=== PATIENT | male | born 1980 | race Caucasian/White ===

== ENCOUNTER 2022-01-03 11:34 | Inpatient (IN) | payer MEDICAID, OTHER ==
[~2022-01-03] VITALS: Ht 172.7 cm; Wt 71.7 kg
[2022-01-03 12:47] LABS: BASOPHILS % 0.3 % (0.0-2.0); EOSINOPHILS % 0.3 % (0.0-5.0); HEMATOCRIT. 27.4 % (42.0-52.0); HEMOGLOBIN. 8.9 g/dL (14.0-18.0); LYMPHOCYTES % 10.9 % (20.0-50.0); MEAN CORPUSCULAR HEMOGLOBIN 24.6 pg (28.0-32.0); MEAN CORPUSCULAR VOLUME 75.8 fL (80.0-94.0); MONOCYTES % 1.8 % (2.0-8.0); NEUTROPHILS % 86.7 % (40.0-76.0); PLATELET 108 x1000/uL (130-400); RED BLOOD CELL COUNT 3.62 mill/uL (4.7-6.1); RED CELL DISTRIBUTION WIDTH 17.4 % (11.6-14.6)
[2022-01-03 12:53] LABS: CHLORIDE 113 mEq/L (98-107)
[2022-01-03] MEDS ORDERED: SODIUM CHLORIDE 0.9% 500 ML IV ONE (16:00)
[2022-01-03] MEDS ORDERED: HYDRALAZINE 20MG/ML VIAL IV ONE (21:15)
[2022-01-04] VITALS (34 sets, daily range): BP systolic 37–223; BP diastolic 18–193
[2022-01-04] MEDS ORDERED: DEXTROSE 50% WATER 50ML SYRINGE IV PRN (05:45)
[2022-01-04] MEDS ORDERED: SODIUM CHLORIDE 0.9% 1,000 ML IV SCH (06:00)
[2022-01-04] MEDS: BLOOD SUGAR DIAGNOSTIC STRIP TEST SCH ×3 (06:11→21:49)
[2022-01-04] MEDS: INSULIN LISPRO 100 UNITS/ML SUBCUT SCH ×3 (06:11→21:00)
[2022-01-04] MEDS ORDERED: HYDRALAZINE 20MG/ML VIAL IV SCH (08:15)
[2022-01-04] MEDS ORDERED: PIPERACILLIN/TAZOBACTAM 3.375 G in DEXTROSE 5% WATER 50 ML IV SCH (09:00)
[2022-01-04 09:04] LABS: BASOPHILS % 0.3 % (0.0-2.0); EOSINOPHILS % 0.3 % (0.0-5.0); LYMPHOCYTES % 16.3 % (20.0-50.0); MEAN CORPUSCULAR VOLUME 74.7 fL (80.0-94.0); MEAN PLATELET VOLUME 8.8 fl (7.4-10.4); MONOCYTES % 3.2 % (2.0-8.0); NEUTROPHILS % 79.9 % (40.0-76.0); PLATELET 87 x1000/uL (130-400); RED BLOOD CELL COUNT 3.21 mill/uL (4.7-6.1); RED CELL DISTRIBUTION WIDTH 17.4 % (11.6-14.6)
[2022-01-04] MEDS: AMLODIPINE 10MG TABLET PO SCH (13:16)
[2022-01-04] MEDS ORDERED: LORAZEPAM 2MG/ML CPJ IV PRN ×2 (15:00→21:00)
[2022-01-04] MEDS ORDERED: SODIUM CHLORIDE 0.9% 500 ML IV ONE ×2 (16:45→17:00)
[2022-01-04] MEDS ORDERED: FLUMAZENIL 0.1 MG/ML 5ML VIAL IV NR ×3 (16:45→23:00)
[2022-01-04] MEDS ORDERED: NOREPINEPHRINE 8 MG in DEXT 5% WATER 242 ML IV PRN (17:15)
[2022-01-04] MEDS ORDERED: IPRATROPIUM/ALBUTEROL 0.5-3(2.5)MG/3ML NEB HHN PRN (17:15)
[2022-01-04] MEDS ORDERED: FLUMAZENIL 0.1 MG/ML 5ML VIAL IV PRN (17:45)
[2022-01-04 18:01] LABS: BG CARBOXYHEMOGLOBIN 0.2 % (0.5-1.5); BG DEOXYHEMOGLOBIN 6.9 % (0.0-5.0); BG FRACTION INSPIRED OXYGEN 21; BG HCO3 ACT 15.9 mmol/L (22.0-26.0); BG METHEMOGLOBIN 0.2 % (0.0-1.5); BG OXYGEN SATURATION 93.1 % (92.0-98.5); BG OXYHEMOGLOBIN 92.7 % (94.0-97.0); BG PCO2 35.1 mmHg (35.0-45.0); BG PH 7.275 (7.350-7.450); BG PO2 76.2 mmHg (75.0-100.0); BG SAMPLE SITE RIGHT RADIAL; BG TOTAL HEMOGLOBIN 8.1 g/dL (12.0-18.0); BG VENT MODE ROOM AIR
[2022-01-04] MEDS ORDERED: SODIUM BICARBONATE 100 MEQ in SODIUM CHLORIDE 0.45% 1,000 ML IV SCH (20:00)
[2022-01-04 20:43] LABS: TOTAL IRON BINDING CAPACITY 198 ug/dL (250-450)
[2022-01-04 21:12] LABS: VITAMIN B12 SERUM >2000 pg/mL pg/mL (211-911)
[2022-01-04 22:44] LABS: BG BASE EXCESS -11.9 mmol/L (-2.0-2.0); BG CARBOXYHEMOGLOBIN 0.4 % (0.5-1.5); BG DEOXYHEMOGLOBIN 6.1 % (0.0-5.0); BG FRACTION INSPIRED OXYGEN 40; BG HCO3 ACT 15.6 mmol/L (22.0-26.0); BG METHEMOGLOBIN 0.1 % (0.0-1.5); BG OXYGEN SATURATION 93.9 % (92.0-98.5); BG OXYHEMOGLOBIN 93.4 % (94.0-97.0); BG PCO2 40.8 mmHg (35.0-45.0); BG PH 7.199 (7.350-7.450); BG PO2 82.9 mmHg (75.0-100.0); BG SAMPLE SITE RIGHT RADIAL; BG TOTAL HEMOGLOBIN 12.1 g/dL (12.0-18.0); BG VENT MODE NASAL CANNULA
[2022-01-04] MEDS ORDERED: SODIUM BICARBONATE 8.4% 1 MEQ/ML 50ML SYR IV NR (23:00)
[2022-01-05] VITALS (89 sets, daily range): BP systolic 68–173; BP diastolic 26–108
[2022-01-05] MEDS ORDERED: HALOPERIDOL LACTATE 5MG/ML VIAL IM PRN
[2022-01-05] MEDS ORDERED: DOPAMINE 800MG PREMIX (DOUBLE) 250 ML IV PRN (00:45)
[2022-01-05] MEDS ORDERED: PHENYLEPHRINE 100 MG in DEXT 5% WATER 240 ML IV PRN (00:45)
[2022-01-05] MEDS: NOREPINEPHRINE 32 MG in DEXT 5% WATER 218 ML IV PRN (01:02)
[2022-01-05 01:16] LABS: BG BASE EXCESS -25.1 mmol/L (-2.0-2.0); BG CARBOXYHEMOGLOBIN 0.3 % (0.5-1.5); BG DEOXYHEMOGLOBIN 8.5 % (0.0-5.0); BG FRACTION INSPIRED OXYGEN 100; BG HCO3 ACT 7.1 mmol/L (22.0-26.0); BG METHEMOGLOBIN 0.3 % (0.0-1.5); BG OXYGEN SATURATION 91.4 % (92.0-98.5); BG OXYHEMOGLOBIN 90.9 % (94.0-97.0); BG PCO2 37.9 mmHg (35.0-45.0); BG PH 6.888 (7.350-7.450); BG PO2 96.5 mmHg (75.0-100.0); BG SAMPLE SITE RIGHT RADIAL; BG TOTAL HEMOGLOBIN 10.5 g/dL (12.0-18.0); BG VENT MODE VENT - AC
[2022-01-05 01:25] LABS: HEMATOCRIT. 31.1 % (42.0-52.0); HEMOGLOBIN. 9.6 g/dL (14.0-18.0); MEAN CORPUSCULAR HEMOGLOBIN 24.6 pg (28.0-32.0); MEAN CORPUSCULAR VOLUME 79.4 fL (80.0-94.0); MEAN PLATELET VOLUME 9.1 fl (7.4-10.4); PLATELET 89 x1000/uL (130-400); RED BLOOD CELL COUNT 3.91 mill/uL (4.7-6.1); RED CELL DISTRIBUTION WIDTH 18.2 % (11.6-14.6)
[2022-01-05] MEDS ORDERED: POTASSIUM CHLORIDE INJ 40 MEQ in DEXT 5% WATER 500 ML IV ONE (02:15)
[2022-01-05] MEDS ORDERED: SODIUM BICARBONATE 8.4% 1 MEQ/ML 50ML SYR IV NR (02:30)
[2022-01-05] MEDS ORDERED: SODIUM BICARBONATE 150 MEQ in DEXTROSE 5% WATER 1,000 ML IV SCH (03:00)
[2022-01-05] MEDS: KCL 20MEQ/100ML X 2 FOR TOTAL KCL 40MEQ/200ML IV SCH ×2 (03:05→05:38)
[2022-01-05] MEDS: FENTANYL CITRATE/PF 2,500 MCG in SODIUM CHLORIDE 0.9% 200 ML IV PRN (03:09)
[2022-01-05] MEDS: MIDAZOLAM HCL 100 MG in SODIUM CHLORIDE 0.9% 80 ML IV PRN (03:27)
[2022-01-05 04:25] LABS: NUCLEATED RED BLOOD CELLS 5 /100 WBC; PLATELET ESTIMATE DECREASED
[2022-01-05 05:29] LABS: HEMATOCRIT. 27.1 % (42.0-52.0); MEAN CORPUSCULAR HEMOGLOBIN 24.9 pg (28.0-32.0); MEAN CORPUSCULAR VOLUME 74.8 fL (80.0-94.0); MEAN PLATELET VOLUME 8.5 fl (7.4-10.4); PLATELET 73 x1000/uL (130-400); RED BLOOD CELL COUNT 3.62 mill/uL (4.7-6.1); RED CELL DISTRIBUTION WIDTH 17.5 % (11.6-14.6)
[2022-01-05] MEDS: INSULIN LISPRO 100 UNITS/ML SUBCUT SCH ×4 (05:38→21:00)
[2022-01-05] MEDS: BLOOD SUGAR DIAGNOSTIC STRIP TEST SCH ×4 (05:38→21:15)
[2022-01-05] MEDS: AMLODIPINE 10MG TABLET PO SCH (09:00)
[2022-01-05] MEDS ORDERED: EPINEPHRINE 0.1MG/ML (1:10,000) 10ML SYR ONE (09:11)
[2022-01-05] MEDS ORDERED: ATROPINE SULFATE 1MG/10ML SYR ONE (09:11)
[2022-01-05] MEDS ORDERED: DEXTROSE 50% WATER 50ML SYRINGE IV ONE (09:11)
[2022-01-05] MEDS ORDERED: SODIUM BICARBONATE 8.4% 1 MEQ/ML 50ML SYR IV ONE (09:11)
[2022-01-05] MEDS ORDERED: AMIODARONE HCL 50MG/ML 3ML VIAL IV ONE (09:11)
[2022-01-05 09:34] LABS: BG BASE EXCESS -5.6 mmol/L (-2.0-2.0); BG DEOXYHEMOGLOBIN 0.9 % (0.0-5.0); BG FRACTION INSPIRED OXYGEN 100; BG METHEMOGLOBIN 0.3 % (0.0-1.5); BG OXYGEN SATURATION 99.1 % (92.0-98.5); BG OXYHEMOGLOBIN 98.8 % (94.0-97.0); BG PCO2 27.8 mmHg (35.0-45.0); BG PH 7.428 (7.350-7.450); BG PO2 232.8 mmHg (75.0-100.0); BG SAMPLE SITE RIGHT RADIAL; BG TOTAL HEMOGLOBIN 8.4 g/dL (12.0-18.0); BG VENT MODE VENT - AC
[2022-01-05 10:05] LABS: INR 1.6; PROTHROMBIN TIME 16.1 sec (9.6-11.0)
[2022-01-05 11:53] LABS: CLARITY URINE CLOUDY (CLEAR); COLOR URINE RED (YELLOW); KETONES URINE NEGATIVE (NEGATIVE); LEUKOCYTE ESTERASE URINE 1+ (NEGATIVE); NITRITE URINE NEGATIVE (NEGATIVE); OCCULT BLOOD URINE 3+ (NEGATIVE); PROTEIN URINE 3+ (NEGATIVE); UROBILINOGEN URINE 0.2 E.U./dL (0.2-1.0)
[2022-01-05 12:10] LABS: *AMPHETAMINES SCREEN URINE PRESUMTIVE POSITIVE (NEGATIVE); *BARBITURATES SCREEN URINE NEGATIVE (NEGATIVE)
[2022-01-05 12:11] LABS: *BENZODIAZEPINES SCREEN URINE PRESUMTIVE POSITIVE (NEGATIVE); *COCAINE SCREEN URINE NEGATIVE (NEGATIVE); CANNABINOID URINE SCREEN NEGATIVE (NEGATIVE); METHADONE URINE SCREEN NEGATIVE (NEGATIVE); OPIATES URINE SCREEN NEGATIVE (NEGATIVE); PHENCYCLIDINE URINE SCREEN NEGATIVE (NEGATIVE)
[2022-01-05] MEDS: MIDODRINE HCL 2.5MG TABLET PO SCH ×2 (13:14→21:20)
[2022-01-05] MEDS: SODIUM BICARBONATE 50 MEQ in DEXTROSE 5% WATER 1,000 ML IV SCH (13:30)
[2022-01-05 16:20] LABS: NUCLEATED RED BLOOD CELLS 3 /100 WBC; PLATELET ESTIMATE DECREASED
[2022-01-05] MEDS: CEFEPIME 1,000 MG in DEXTROSE 5% WATER 50 ML IV SCH (18:35)
[2022-01-05] MEDS: IPRATROPIUM/ALBUTEROL 0.5-3(2.5)MG/3ML NEB HHN SCH (20:08)
[2022-01-06] VITALS (61 sets, daily range): BP systolic 67–149; BP diastolic 44–92
[2022-01-06] MEDS: IPRATROPIUM/ALBUTEROL 0.5-3(2.5)MG/3ML NEB HHN SCH ×2 (00:22→21:16)
[2022-01-06] MEDS ORDERED: PROPOFOL 10MG/ML 100ML 100 ML IV PRN ×2 (01:15→10:15)
[2022-01-06] MEDS: MIDAZOLAM HCL 100 MG in SODIUM CHLORIDE 0.9% 80 ML IV PRN ×2 (01:18→09:46)
[2022-01-06 05:32] LABS: BASOPHILS % 0.3 % (0.0-2.0); EOSINOPHILS % 0.2 % (0.0-5.0); HEMATOCRIT. 25.4 % (42.0-52.0); HEMOGLOBIN. 8.6 g/dL (14.0-18.0); LYMPHOCYTES % 18.9 % (20.0-50.0); MEAN CORPUSCULAR HEMOGLOBIN 25.2 pg (28.0-32.0); MEAN CORPUSCULAR VOLUME 74.4 fL (80.0-94.0); MEAN PLATELET VOLUME 8.5 fl (7.4-10.4); MONOCYTES % 2.7 % (2.0-8.0); NEUTROPHILS % 77.9 % (40.0-76.0); PLATELET 56 x1000/uL (130-400); RED BLOOD CELL COUNT 3.41 mill/uL (4.7-6.1); RED CELL DISTRIBUTION WIDTH 17.5 % (11.6-14.6)
[2022-01-06] MEDS: INSULIN LISPRO 100 UNITS/ML SUBCUT SCH ×4 (05:57→21:23)
[2022-01-06] MEDS: BLOOD SUGAR DIAGNOSTIC STRIP TEST SCH ×4 (05:57→21:19)
[2022-01-06] MEDS: FENTANYL CITRATE/PF 2,500 MCG in SODIUM CHLORIDE 0.9% 200 ML IV PRN (06:05)
[2022-01-06] MEDS: SODIUM BICARBONATE 50 MEQ in DEXTROSE 5% WATER 1,000 ML IV SCH (06:05)
[2022-01-06] MEDS: CEFEPIME 1,000 MG in DEXTROSE 5% WATER 50 ML IV SCH ×2 (06:06→18:21)
[2022-01-06] MEDS: MIDODRINE HCL 2.5MG TABLET PO SCH ×3 (06:10→21:27)
[2022-01-06 06:15] LABS: CHLORIDE 119 mEq/L (98-107)
[2022-01-06 06:23] LABS: PHOSPHORUS 5.2 mg/dL (2.5-4.9)
[2022-01-06 06:41] LABS: CREATINE KINASE 1132 IU/L (39-308)
[2022-01-06 09:40] LABS: BG BASE EXCESS -0.3 mmol/L (-2.0-2.0); BG CARBOXYHEMOGLOBIN 0.2 % (0.5-1.5); BG DEOXYHEMOGLOBIN 3.8 % (0.0-5.0); BG FRACTION INSPIRED OXYGEN 40; BG HCO3 ACT 23.2 mmol/L (22.0-26.0); BG METHEMOGLOBIN 0.3 % (0.0-1.5); BG OXYGEN SATURATION 96.2 % (92.0-98.5); BG OXYHEMOGLOBIN 95.7 % (94.0-97.0); BG PCO2 33.1 mmHg (35.0-45.0); BG PH 7.463 (7.350-7.450); BG PO2 89.2 mmHg (75.0-100.0); BG SAMPLE SITE RIGHT RADIAL; BG TOTAL HEMOGLOBIN 9.1 g/dL (12.0-18.0); BG TOTAL RESPIRATORY RATE 24 b/min; BG VENT MODE VENT - AC
[2022-01-06 10:30] LABS: D-DIMER 4.99 mg/L FEU (<0.50); INR 1.5; PROTHROMBIN TIME 15.2 sec (9.6-11.0)
[2022-01-06] MEDS: DEXTROSE 5% WATER 1,000 ML IV SCH ×2 (10:34→21:25)
[2022-01-06] MEDS ORDERED: MAGNESIUM 4 G PREMIX 100 ML IV NR (12:00)
[2022-01-06 18:26] LABS: PROSTRATE SPECIFIC AG TOTAL 0.64 ng/mL (0.0-4.0)
[2022-01-06 18:37] LABS: HEPATITIS B SURFACE ANTIGEN NEGATIVE
[2022-01-07] VITALS (61 sets, daily range): BP systolic 79–146; BP diastolic 44–85
[2022-01-07] MEDS: IPRATROPIUM/ALBUTEROL 0.5-3(2.5)MG/3ML NEB HHN SCH ×3 (01:28→14:57)
[2022-01-07] MEDS: MIDAZOLAM HCL 100 MG in SODIUM CHLORIDE 0.9% 80 ML IV PRN (02:16)
[2022-01-07 05:27] LABS: BASOPHILS % 0.6 % (0.0-2.0); EOSINOPHILS % 0.9 % (0.0-5.0); HEMATOCRIT. 26.3 % (42.0-52.0); HEMOGLOBIN. 8.7 g/dL (14.0-18.0); LYMPHOCYTES % 13.7 % (20.0-50.0); MEAN CORPUSCULAR VOLUME 75.2 fL (80.0-94.0); MEAN PLATELET VOLUME 8.4 fl (7.4-10.4); NEUTROPHILS % 81.8 % (40.0-76.0); RED BLOOD CELL COUNT 3.49 mill/uL (4.7-6.1); RED CELL DISTRIBUTION WIDTH 17.5 % (11.6-14.6)
[2022-01-07] MEDS: BLOOD SUGAR DIAGNOSTIC STRIP TEST SCH ×4 (05:40→21:53)
[2022-01-07 05:44] LABS: PHOSPHORUS 6.1 mg/dL (2.5-4.9)
[2022-01-07] MEDS: INSULIN LISPRO 100 UNITS/ML SUBCUT SCH ×4 (05:50→21:56)
[2022-01-07] MEDS: CEFEPIME 1,000 MG in DEXTROSE 5% WATER 50 ML IV SCH ×2 (05:51→18:25)
[2022-01-07] MEDS: MIDODRINE HCL 2.5MG TABLET PO SCH (05:51)
[2022-01-07] MEDS: DEXTROSE 5% WATER 1,000 ML IV SCH ×2 (05:51→16:00)
[2022-01-07] MEDS: NOREPINEPHRINE 32 MG in DEXT 5% WATER 218 ML IV PRN (05:53)
[2022-01-07 06:12] LABS: PLATELET 46 x1000/uL (130-400)
[2022-01-07 08:07] LABS: HIV SCREEN 4G Non Reactive (Non Reactive)
[2022-01-07 09:40] LABS: BG BASE EXCESS -0.2 mmol/L (-2.0-2.0); BG CARBOXYHEMOGLOBIN 0.4 % (0.5-1.5); BG DEOXYHEMOGLOBIN 6.7 % (0.0-5.0); BG FRACTION INSPIRED OXYGEN 55; BG HCO3 ACT 25.6 mmol/L (22.0-26.0); BG METHEMOGLOBIN 0.1 % (0.0-1.5); BG OXYGEN SATURATION 93.3 % (92.0-98.5); BG OXYHEMOGLOBIN 92.8 % (94.0-97.0); BG PCO2 47.5 mmHg (35.0-45.0); BG PO2 73.9 mmHg (75.0-100.0); BG SAMPLE SITE RIGHT RADIAL; BG TOTAL HEMOGLOBIN 9.1 g/dL (12.0-18.0); BG TOTAL RESPIRATORY RATE 16 b/min; BG VENT MODE VENT - AC
[2022-01-07] MEDS ORDERED: LINEZOLID 600 MG PREMIX 300 ML IV SCH (11:15)
[2022-01-07] MEDS ORDERED: VANCOMYCIN 1.25GM PMX (XELLIA) 250 ML IV SCH (13:00)
[2022-01-07] MEDS: METRONIDAZOLE 500 MG PREMIX 100 ML IV SCH ×2 (13:10→22:06)
[2022-01-07] MEDS: MIDODRINE HCL 5MG TABLET PO SCH ×2 (14:00→21:53)
[2022-01-07] MEDS ORDERED: FENTANYL CITRATE/PF 2,500 MCG in DEXT 5% WATER 200 ML IV PRN (19:45)
[2022-01-08] VITALS (106 sets, daily range): BP systolic 72–203; BP diastolic 37–112
[2022-01-08] MEDS: DEXTROSE 5% WATER 1,000 ML IV SCH ×4 (02:02→21:32)
[2022-01-08 04:45] LABS: BG BASE EXCESS -2.1 mmol/L (-2.0-2.0); BG CARBOXYHEMOGLOBIN 0.4 % (0.5-1.5); BG DEOXYHEMOGLOBIN 10.3 % (0.0-5.0); BG FRACTION INSPIRED OXYGEN 40; BG HCO3 ACT 24.2 mmol/L (22.0-26.0); BG METHEMOGLOBIN 0.3 % (0.0-1.5); BG OXYGEN SATURATION 89.6 % (92.0-98.5); BG PCO2 49.5 mmHg (35.0-45.0); BG PH 7.307 (7.350-7.450); BG PO2 63.8 mmHg (75.0-100.0); BG SAMPLE SITE RIGHT RADIAL; BG VENT MODE VENT - SIMV
[2022-01-08] MEDS: IPRATROPIUM/ALBUTEROL 0.5-3(2.5)MG/3ML NEB HHN SCH ×4 (05:27→20:38)
[2022-01-08 05:35] LABS: HEMATOCRIT. 22.8 % (42.0-52.0); HEMOGLOBIN. 7.5 g/dL (14.0-18.0); MEAN CORPUSCULAR HEMOGLOBIN 25.1 pg (28.0-32.0); MEAN CORPUSCULAR VOLUME 76.6 fL (80.0-94.0); MEAN PLATELET VOLUME 8.2 fl (7.4-10.4); RED BLOOD CELL COUNT 2.97 mill/uL (4.7-6.1); RED CELL DISTRIBUTION WIDTH 17.8 % (11.6-14.6)
[2022-01-08 05:55] LABS: PHOSPHORUS 7.2 mg/dL (2.5-4.9)
[2022-01-08 06:23] LABS: PLATELET 35 x1000/uL (130-400)
[2022-01-08] MEDS: INSULIN LISPRO 100 UNITS/ML SUBCUT SCH ×4 (06:58→21:31)
[2022-01-08] MEDS: BLOOD SUGAR DIAGNOSTIC STRIP TEST SCH ×4 (06:59→21:32)
[2022-01-08] MEDS: MIDODRINE HCL 5MG TABLET PO SCH ×3 (06:59→21:29)
[2022-01-08] MEDS: CEFEPIME 1,000 MG in DEXTROSE 5% WATER 50 ML IV SCH ×2 (06:59→18:00)
[2022-01-08] MEDS: METRONIDAZOLE 500 MG PREMIX 100 ML IV SCH ×2 (09:02→21:29)
[2022-01-08 10:01] LABS: NUCLEATED RED BLOOD CELLS 2 /100 WBC; PLATELET ESTIMATE MARKEDLY DECREASED
[2022-01-08] MEDS ORDERED: INSULIN GLARGINE UD 100 UNITS/ML SYR SUBCUT SCH (11:00)
[2022-01-08] MEDS: INSULIN GLARGINE UD 100 UNITS/ML SYR SUBCUT SCH (21:31)
[2022-01-09] VITALS (81 sets, daily range): BP systolic 111–173; BP diastolic 34–111
[2022-01-09] MEDS: IPRATROPIUM/ALBUTEROL 0.5-3(2.5)MG/3ML NEB HHN SCH ×5 (00:17→23:59)
[2022-01-09] MEDS: DEXTROSE 5% WATER 1,000 ML IV SCH ×3 (04:31→23:46)
[2022-01-09 04:50] LABS: MEAN CORPUSCULAR HEMOGLOBIN 25.2 pg (28.0-32.0); MEAN CORPUSCULAR VOLUME 75.4 fL (80.0-94.0); MEAN PLATELET VOLUME 8.5 fl (7.4-10.4); RED BLOOD CELL COUNT 2.72 mill/uL (4.7-6.1); RED CELL DISTRIBUTION WIDTH 17.3 % (11.6-14.6)
[2022-01-09 05:18] LABS: HEMATOCRIT. 20.5 % (42.0-52.0); HEMOGLOBIN. 6.8 g/dL (14.0-18.0)
[2022-01-09] MEDS: INSULIN LISPRO 100 UNITS/ML SUBCUT SCH ×4 (06:35→21:09)
[2022-01-09] MEDS: CEFEPIME 1,000 MG in DEXTROSE 5% WATER 50 ML IV SCH ×2 (06:35→17:52)
[2022-01-09] MEDS: MIDODRINE HCL 5MG TABLET PO SCH ×3 (06:36→21:08)
[2022-01-09] MEDS: BLOOD SUGAR DIAGNOSTIC STRIP TEST SCH ×4 (06:36→21:10)
[2022-01-09] MEDS: METRONIDAZOLE 500 MG PREMIX 100 ML IV SCH ×2 (09:45→21:08)
[2022-01-09] MEDS: INSULIN GLARGINE UD 100 UNITS/ML SYR SUBCUT SCH ×2 (09:46→21:10)
[2022-01-09] MEDS ORDERED: VANCOMYCIN 1GM PMX (XELLIA) 200 ML IV NR (10:00)
[2022-01-09 10:39] LABS: BG BASE EXCESS 3.5 mmol/L (-2.0-2.0); BG CARBOXYHEMOGLOBIN 0.3 % (0.5-1.5); BG DEOXYHEMOGLOBIN 9.3 % (0.0-5.0); BG FRACTION INSPIRED OXYGEN 35; BG HCO3 ACT 27.1 mmol/L (22.0-26.0); BG METHEMOGLOBIN 0.1 % (0.0-1.5); BG OXYGEN SATURATION 90.7 % (92.0-98.5); BG OXYHEMOGLOBIN 90.3 % (94.0-97.0); BG PCO2 36.2 mmHg (35.0-45.0); BG PH 7.492 (7.350-7.450); BG PO2 59.2 mmHg (75.0-100.0); BG SAMPLE SITE RIGHT RADIAL; BG TOTAL HEMOGLOBIN 6.7 g/dL (12.0-18.0); BG VENT MODE VENT - AC
[2022-01-09 14:08] LABS: NUCLEATED RED BLOOD CELLS 1 /100 WBC
[2022-01-09 14:09] LABS: PLATELET ESTIMATE SLIGHTLY DECREASED
[2022-01-09 14:10] LABS: PLATELET 25 x1000/uL (130-400)
[2022-01-10] VITALS (53 sets, daily range): BP systolic 94–148; BP diastolic 51–94
[2022-01-10 05:55] LABS: EOSINOPHILS % 1.7 % (0.0-5.0); HEMATOCRIT. 29.3 % (42.0-52.0); HEMOGLOBIN. 9.6 g/dL (14.0-18.0); LYMPHOCYTES % 12.1 % (20.0-50.0); MEAN CORPUSCULAR HEMOGLOBIN 25.6 pg (28.0-32.0); MEAN CORPUSCULAR VOLUME 78.4 fL (80.0-94.0); MEAN PLATELET VOLUME 10.6 fl (7.4-10.4); MONOCYTES % 6.1 % (2.0-8.0); NEUTROPHILS % 79.1 % (40.0-76.0); RED BLOOD CELL COUNT 3.74 mill/uL (4.7-6.1); RED CELL DISTRIBUTION WIDTH 18.4 % (11.6-14.6)
[2022-01-10 06:07] LABS: CHLORIDE 113 mEq/L (98-107)
[2022-01-10 06:19] LABS: PHOSPHORUS 2.8 mg/dL (2.5-4.9)
[2022-01-10] MEDS: MIDODRINE HCL 5MG TABLET PO SCH ×3 (06:28→22:10)
[2022-01-10] MEDS: CEFEPIME 1,000 MG in DEXTROSE 5% WATER 50 ML IV SCH (06:29)
[2022-01-10] MEDS: INSULIN LISPRO 100 UNITS/ML SUBCUT SCH ×4 (06:30→22:02)
[2022-01-10 06:34] LABS: PLATELET 46 x1000/uL (130-400)
[2022-01-10] MEDS: BLOOD SUGAR DIAGNOSTIC STRIP TEST SCH ×4 (06:39→21:14)
[2022-01-10] MEDS: IPRATROPIUM/ALBUTEROL 0.5-3(2.5)MG/3ML NEB HHN SCH ×3 (08:58→20:35)
[2022-01-10] MEDS: METRONIDAZOLE 500 MG PREMIX 100 ML IV SCH ×2 (09:00→21:13)
[2022-01-10] MEDS: DEXTROSE 5% WATER 1,000 ML IV SCH ×2 (09:35→19:35)
[2022-01-10 11:02] LABS: BG BASE EXCESS -0.9 mmol/L (-2.0-2.0); BG CARBOXYHEMOGLOBIN 0.3 % (0.5-1.5); BG DEOXYHEMOGLOBIN 4.3 % (0.0-5.0); BG FRACTION INSPIRED OXYGEN 35; BG HCO3 ACT 22.9 mmol/L (22.0-26.0); BG METHEMOGLOBIN 0.1 % (0.0-1.5); BG OXYGEN SATURATION 95.7 % (92.0-98.5); BG OXYHEMOGLOBIN 95.3 % (94.0-97.0); BG PCO2 34.3 mmHg (35.0-45.0); BG PH 7.442 (7.350-7.450); BG PO2 79.3 mmHg (75.0-100.0); BG SAMPLE SITE RIGHT RADIAL; BG VENT MODE VENT - AC
[2022-01-10 16:20] LABS: BG BASE EXCESS -0.5 mmol/L (-2.0-2.0); BG CARBOXYHEMOGLOBIN 0.3 % (0.5-1.5); BG DEOXYHEMOGLOBIN 6.4 % (0.0-5.0); BG FRACTION INSPIRED OXYGEN 35; BG METHEMOGLOBIN 0.5 % (0.0-1.5); BG OXYGEN SATURATION 93.5 % (92.0-98.5); BG OXYHEMOGLOBIN 92.8 % (94.0-97.0); BG PCO2 33.2 mmHg (35.0-45.0); BG PH 7.458 (7.350-7.450); BG SAMPLE SITE RIGHT RADIAL; BG TOTAL HEMOGLOBIN 9.1 g/dL (12.0-18.0); BG VENT MODE VENT - CPAP
[2022-01-10] MEDS: INSULIN GLARGINE UD 100 UNITS/ML SYR SUBCUT SCH (22:08)
[2022-01-11] VITALS (56 sets, daily range): BP systolic 105–166; BP diastolic 65–110
[2022-01-11] MEDS: IPRATROPIUM/ALBUTEROL 0.5-3(2.5)MG/3ML NEB HHN SCH ×4 (01:00→20:09)
[2022-01-11] MEDS: MIDODRINE HCL 5MG TABLET PO SCH ×3 (06:00→22:00)
[2022-01-11 06:18] LABS: BASOPHILS % 0.6 % (0.0-2.0); EOSINOPHILS % 2.6 % (0.0-5.0); HEMATOCRIT. 27.6 % (42.0-52.0); LYMPHOCYTES % 14.9 % (20.0-50.0); MEAN CORPUSCULAR HEMOGLOBIN 25.6 pg (28.0-32.0); MEAN CORPUSCULAR VOLUME 78.8 fL (80.0-94.0); MEAN PLATELET VOLUME 9.9 fl (7.4-10.4); MONOCYTES % 6.4 % (2.0-8.0); NEUTROPHILS % 75.5 % (40.0-76.0); PLATELET 82 x1000/uL (130-400); RED BLOOD CELL COUNT 3.51 mill/uL (4.7-6.1); RED CELL DISTRIBUTION WIDTH 18.6 % (11.6-14.6)
[2022-01-11] MEDS: INSULIN LISPRO 100 UNITS/ML SUBCUT SCH ×5 (06:18→21:00)
[2022-01-11] MEDS: BLOOD SUGAR DIAGNOSTIC STRIP TEST SCH ×5 (06:18→21:37)
[2022-01-11] MEDS: DEXTROSE 5% WATER 1,000 ML IV SCH (06:30)
[2022-01-11 06:55] LABS: PHOSPHORUS 2.5 mg/dL (2.5-4.9)
[2022-01-11] MEDS: METRONIDAZOLE 500 MG PREMIX 100 ML IV SCH ×2 (08:32→21:36)
[2022-01-11 08:43] LABS: BG BASE EXCESS 2.8 mmol/L (-2.0-2.0); BG CARBOXYHEMOGLOBIN 0.1 % (0.5-1.5); BG DEOXYHEMOGLOBIN 4.2 % (0.0-5.0); BG HCO3 ACT 26.6 mmol/L (22.0-26.0); BG METHEMOGLOBIN 0.3 % (0.0-1.5); BG OXYGEN SATURATION 95.8 % (92.0-98.5); BG OXYHEMOGLOBIN 95.4 % (94.0-97.0); BG PCO2 37.7 mmHg (35.0-45.0); BG PH 7.466 (7.350-7.450); BG PO2 79.8 mmHg (75.0-100.0); BG SAMPLE SITE RIGHT RADIAL; BG TOTAL HEMOGLOBIN 9.5 g/dL (12.0-18.0); BG VENT MODE COOL AEROSOL
[2022-01-11] MEDS: INSULIN GLARGINE UD 100 UNITS/ML SYR SUBCUT SCH ×2 (09:23→21:47)
[2022-01-11] MEDS ORDERED: VANCOMYCIN 1GM PMX (XELLIA) 200 ML IV NR (12:00)
[2022-01-11] MEDS ORDERED: MAGNESIUM 2 G PREMIX 50 ML IV NR (20:00)
[2022-01-12] VITALS (12 sets, daily range): BP systolic 95–140; BP diastolic 53–84
[2022-01-12] MEDS: IPRATROPIUM/ALBUTEROL 0.5-3(2.5)MG/3ML NEB HHN SCH ×4 (02:32→20:22)
[2022-01-12 05:19] LABS: EOSINOPHILS % 3.5 % (0.0-5.0); HEMATOCRIT. 28.7 % (42.0-52.0); HEMOGLOBIN. 9.5 g/dL (14.0-18.0); LYMPHOCYTES % 21.6 % (20.0-50.0); MEAN CORPUSCULAR HEMOGLOBIN 25.7 pg (28.0-32.0); MEAN CORPUSCULAR VOLUME 77.8 fL (80.0-94.0); MEAN PLATELET VOLUME 9.1 fl (7.4-10.4); MONOCYTES % 7.1 % (2.0-8.0); NEUTROPHILS % 66.8 % (40.0-76.0); PLATELET 174 x1000/uL (130-400); RED BLOOD CELL COUNT 3.68 mill/uL (4.7-6.1); RED CELL DISTRIBUTION WIDTH 18.4 % (11.6-14.6)
[2022-01-12 05:56] LABS: PHOSPHORUS 3.4 mg/dL (2.5-4.9)
[2022-01-12] MEDS: BLOOD SUGAR DIAGNOSTIC STRIP TEST SCH ×4 (07:30→21:11)
[2022-01-12] MEDS: METRONIDAZOLE 500 MG PREMIX 100 ML IV SCH ×3 (08:49→22:14)
[2022-01-12] MEDS: INSULIN LISPRO 100 UNITS/ML SUBCUT SCH ×4 (08:50→21:00)
[2022-01-12] MEDS: INSULIN GLARGINE UD 100 UNITS/ML SYR SUBCUT SCH ×2 (10:44→22:40)
[2022-01-12] MEDS: ENOXAPARIN 40MG/0.4ML SYR SUBCUT SCH (12:02)
[2022-01-12] MEDS: MIDODRINE HCL 5MG TABLET PO SCH ×2 (13:01→22:15)
[2022-01-13] VITALS (9 sets, daily range): BP systolic 99–122; BP diastolic 62–86
[2022-01-13] MEDS: IPRATROPIUM/ALBUTEROL 0.5-3(2.5)MG/3ML NEB HHN SCH ×2 (01:51→10:53)
[2022-01-13] MEDS: MIDODRINE HCL 5MG TABLET PO SCH ×3 (06:25→22:45)
[2022-01-13] MEDS: BLOOD SUGAR DIAGNOSTIC STRIP TEST SCH ×4 (07:30→21:24)
[2022-01-13 07:44] LABS: EOSINOPHILS % 3.6 % (0.0-5.0); HEMATOCRIT. 27.2 % (42.0-52.0); HEMOGLOBIN. 9.1 g/dL (14.0-18.0); LYMPHOCYTES % 16.5 % (20.0-50.0); MEAN CORPUSCULAR HEMOGLOBIN 26.1 pg (28.0-32.0); MEAN CORPUSCULAR VOLUME 77.9 fL (80.0-94.0); MEAN PLATELET VOLUME 8.8 fl (7.4-10.4); MONOCYTES % 5.5 % (2.0-8.0); NEUTROPHILS % 73.4 % (40.0-76.0); PLATELET 322 x1000/uL (130-400); RED BLOOD CELL COUNT 3.49 mill/uL (4.7-6.1); RED CELL DISTRIBUTION WIDTH 18.6 % (11.6-14.6)
[2022-01-13 07:48] LABS: CHLORIDE 108 mEq/L (98-107)
[2022-01-13] MEDS: INSULIN LISPRO 100 UNITS/ML SUBCUT SCH ×4 (08:00→21:00)
[2022-01-13] MEDS: ENOXAPARIN 40MG/0.4ML SYR SUBCUT SCH (10:55)
[2022-01-13] MEDS: INSULIN GLARGINE UD 100 UNITS/ML SYR SUBCUT SCH ×2 (10:56→22:50)
[2022-01-13] MEDS: SILVER SULFADIAZINE 1% CREAM 50GM TOP SCH ×2 (13:29→18:15)
[2022-01-14] VITALS: BP 130/75
[2022-01-14 04:00] VITALS: BP 119/75
[2022-01-14 06:04] LABS: BASOPHILS % 0.8 % (0.0-2.0); HEMATOCRIT. 31.8 % (42.0-52.0); HEMOGLOBIN. 10.2 g/dL (14.0-18.0); LYMPHOCYTES % 19.5 % (20.0-50.0); MEAN CORPUSCULAR HEMOGLOBIN 25.3 pg (28.0-32.0); MEAN CORPUSCULAR VOLUME 78.4 fL (80.0-94.0); MEAN PLATELET VOLUME 8.6 fl (7.4-10.4); MONOCYTES % 6.6 % (2.0-8.0); NEUTROPHILS % 70.1 % (40.0-76.0); PLATELET 459 x1000/uL (130-400); RED BLOOD CELL COUNT 4.05 mill/uL (4.7-6.1); RED CELL DISTRIBUTION WIDTH 18.1 % (11.6-14.6)
[2022-01-14] MEDS: MIDODRINE HCL 5MG TABLET PO SCH ×3 (06:06→23:45)
[2022-01-14 06:46] LABS: PHOSPHORUS 3.6 mg/dL (2.5-4.9)
[2022-01-14] MEDS: BLOOD SUGAR DIAGNOSTIC STRIP TEST SCH ×4 (07:51→21:41)
[2022-01-14 08:00] VITALS: BP 110/72
[2022-01-14] MEDS: INSULIN LISPRO 100 UNITS/ML SUBCUT SCH ×4 (08:00→21:00)
[2022-01-14] MEDS: ENOXAPARIN 40MG/0.4ML SYR SUBCUT SCH (10:13)
[2022-01-14] MEDS: INSULIN GLARGINE UD 100 UNITS/ML SYR SUBCUT SCH ×2 (10:13→23:46)
[2022-01-14] MEDS: SILVER SULFADIAZINE 1% CREAM 50GM TOP SCH ×2 (10:14→17:16)
[2022-01-14 12:00] VITALS: BP 112/77
[2022-01-14 16:00] VITALS: BP 114/81
[2022-01-14] MEDS: IPRATROPIUM/ALBUTEROL 0.5-3(2.5)MG/3ML NEB HHN SCH (16:05)
[2022-01-14 20:00] VITALS: BP 96/58
[2022-01-15] VITALS: BP 108/78
[2022-01-15] MEDS: IPRATROPIUM/ALBUTEROL 0.5-3(2.5)MG/3ML NEB HHN SCH ×4 (00:07→20:47)
[2022-01-15 04:00] VITALS: BP 112/71
[2022-01-15] MEDS: MIDODRINE HCL 5MG TABLET PO SCH ×3 (06:39→21:28)
[2022-01-15 07:10] LABS: BASOPHILS % 0.9 % (0.0-2.0); EOSINOPHILS % 3.1 % (0.0-5.0); HEMOGLOBIN. 9.9 g/dL (14.0-18.0); LYMPHOCYTES % 23.7 % (20.0-50.0); MEAN CORPUSCULAR HEMOGLOBIN 25.8 pg (28.0-32.0); MEAN CORPUSCULAR VOLUME 78.4 fL (80.0-94.0); MEAN PLATELET VOLUME 8.5 fl (7.4-10.4); MONOCYTES % 5.5 % (2.0-8.0); NEUTROPHILS % 66.8 % (40.0-76.0); PLATELET 570 x1000/uL (130-400); RED BLOOD CELL COUNT 3.82 mill/uL (4.7-6.1); RED CELL DISTRIBUTION WIDTH 18.2 % (11.6-14.6)
[2022-01-15 07:29] LABS: PHOSPHORUS 2.8 mg/dL (2.5-4.9)
[2022-01-15] MEDS: BLOOD SUGAR DIAGNOSTIC STRIP TEST SCH ×4 (07:59→21:26)
[2022-01-15] MEDS: INSULIN LISPRO 100 UNITS/ML SUBCUT SCH ×4 (07:59→21:29)
[2022-01-15 08:00] VITALS: BP 127/80
[2022-01-15] MEDS: SILVER SULFADIAZINE 1% CREAM 50GM TOP SCH ×2 (11:12→16:35)
[2022-01-15] MEDS: INSULIN GLARGINE UD 100 UNITS/ML SYR SUBCUT SCH ×2 (11:12→21:29)
[2022-01-15] MEDS: ENOXAPARIN 40MG/0.4ML SYR SUBCUT SCH (11:14)
[2022-01-15 12:00] VITALS: BP 115/74
[2022-01-15 16:00] VITALS: BP 112/76
[2022-01-15 20:00] VITALS: BP 104/63
[2022-01-16] VITALS: BP 108/64
[2022-01-16 04:00] VITALS: BP 120/79
[2022-01-16] MEDS: MIDODRINE HCL 5MG TABLET PO SCH ×3 (05:45→21:28)
[2022-01-16 06:59] LABS: EOSINOPHILS % 3.1 % (0.0-5.0); HEMOGLOBIN. 9.5 g/dL (14.0-18.0); LYMPHOCYTES % 21.7 % (20.0-50.0); MEAN CORPUSCULAR HEMOGLOBIN 25.6 pg (28.0-32.0); MEAN CORPUSCULAR VOLUME 78.4 fL (80.0-94.0); MONOCYTES % 7.3 % (2.0-8.0); NEUTROPHILS % 66.9 % (40.0-76.0); PLATELET 637 x1000/uL (130-400); RED CELL DISTRIBUTION WIDTH 18.2 % (11.6-14.6)
[2022-01-16 07:14] LABS: PHOSPHORUS 3.9 mg/dL (2.5-4.9)
[2022-01-16] MEDS: BLOOD SUGAR DIAGNOSTIC STRIP TEST SCH ×4 (07:40→20:58)
[2022-01-16 08:00] VITALS: BP 109/68
[2022-01-16] MEDS: INSULIN LISPRO 100 UNITS/ML SUBCUT SCH ×4 (08:00→20:58)
[2022-01-16] MEDS: SILVER SULFADIAZINE 1% CREAM 50GM TOP SCH ×2 (09:00→17:00)
[2022-01-16] MEDS: IPRATROPIUM/ALBUTEROL 0.5-3(2.5)MG/3ML NEB HHN SCH ×4 (09:16→20:33)
[2022-01-16] MEDS: INSULIN GLARGINE UD 100 UNITS/ML SYR SUBCUT SCH ×2 (10:00→21:35)
[2022-01-16 12:00] VITALS: BP 115/79
[2022-01-16] MEDS: ENOXAPARIN 40MG/0.4ML SYR SUBCUT SCH (12:11)
[2022-01-16 16:00] VITALS: BP 100/57
[2022-01-16 20:00] VITALS: BP 102/61
[2022-01-17] VITALS: BP 118/73
[2022-01-17 04:00] VITALS: BP 122/80
[2022-01-17] MEDS: MIDODRINE HCL 5MG TABLET PO SCH ×3 (06:23→21:50)
[2022-01-17 07:16] LABS: PHOSPHORUS 3.3 mg/dL (2.5-4.9)
[2022-01-17 07:21] LABS: BASOPHILS % 1.4 % (0.0-2.0); EOSINOPHILS % 3.7 % (0.0-5.0); HEMOGLOBIN. 8.8 g/dL (14.0-18.0); LYMPHOCYTES % 23.9 % (20.0-50.0); MEAN CORPUSCULAR HEMOGLOBIN 26.3 pg (28.0-32.0); MEAN PLATELET VOLUME 7.8 fl (7.4-10.4); MONOCYTES % 8.6 % (2.0-8.0); NEUTROPHILS % 62.4 % (40.0-76.0); PLATELET 705 x1000/uL (130-400); RED BLOOD CELL COUNT 3.33 mill/uL (4.7-6.1); RED CELL DISTRIBUTION WIDTH 18.1 % (11.6-14.6)
[2022-01-17] MEDS: BLOOD SUGAR DIAGNOSTIC STRIP TEST SCH ×4 (07:54→21:50)
[2022-01-17] MEDS: INSULIN LISPRO 100 UNITS/ML SUBCUT SCH ×4 (07:54→21:50)
[2022-01-17 08:00] VITALS: BP 103/74
[2022-01-17] MEDS: SILVER SULFADIAZINE 1% CREAM 50GM TOP SCH ×2 (08:47→16:24)
[2022-01-17] MEDS: IPRATROPIUM/ALBUTEROL 0.5-3(2.5)MG/3ML NEB HHN SCH ×2 (09:00→15:06)
[2022-01-17] MEDS: ENOXAPARIN 40MG/0.4ML SYR SUBCUT SCH (10:27)
[2022-01-17] MEDS: INSULIN GLARGINE UD 100 UNITS/ML SYR SUBCUT SCH ×2 (10:27→21:49)
[2022-01-17 12:00] VITALS: BP 128/85
[2022-01-17 16:00] VITALS: BP 93/56
[2022-01-17 20:00] VITALS: BP 118/75
[2022-01-18] VITALS (8 sets, daily range): BP systolic 103–135; BP diastolic 70–91
[2022-01-18] MEDS: IPRATROPIUM/ALBUTEROL 0.5-3(2.5)MG/3ML NEB HHN SCH ×3 (00:28→16:05)
[2022-01-18] MEDS: MIDODRINE HCL 5MG TABLET PO SCH ×3 (05:20→21:03)
[2022-01-18 06:38] LABS: BASOPHILS % 2.4 % (0.0-2.0); EOSINOPHILS % 4.1 % (0.0-5.0); HEMATOCRIT. 27.4 % (42.0-52.0); HEMOGLOBIN. 9.2 g/dL (14.0-18.0); LYMPHOCYTES % 31.8 % (20.0-50.0); MEAN CORPUSCULAR HEMOGLOBIN 25.8 pg (28.0-32.0); MEAN CORPUSCULAR VOLUME 77.3 fL (80.0-94.0); MEAN PLATELET VOLUME 7.8 fl (7.4-10.4); MONOCYTES % 9.2 % (2.0-8.0); NEUTROPHILS % 52.5 % (40.0-76.0); PLATELET 720 x1000/uL (130-400); RED BLOOD CELL COUNT 3.54 mill/uL (4.7-6.1); RED CELL DISTRIBUTION WIDTH 17.6 % (11.6-14.6)
[2022-01-18 06:47] LABS: CHLORIDE 106 mEq/L (98-107)
[2022-01-18 06:54] LABS: PHOSPHORUS 2.9 mg/dL (2.5-4.9)
[2022-01-18] MEDS: BLOOD SUGAR DIAGNOSTIC STRIP TEST SCH ×4 (07:30→21:05)
[2022-01-18] MEDS: INSULIN LISPRO 100 UNITS/ML SUBCUT SCH ×4 (09:29→21:04)
[2022-01-18] MEDS: SILVER SULFADIAZINE 1% CREAM 50GM TOP SCH ×2 (09:31→17:25)
[2022-01-18] MEDS: ENOXAPARIN 40MG/0.4ML SYR SUBCUT SCH (10:07)
[2022-01-18] MEDS: INSULIN GLARGINE UD 100 UNITS/ML SYR SUBCUT SCH ×2 (10:10→21:04)
[2022-01-18] MEDS ORDERED: MAGNESIUM 2 G PREMIX 50 ML IV SCH (11:00)
[2022-01-19] VITALS (7 sets, daily range): BP systolic 95–138; BP diastolic 51–83
[2022-01-19] MEDS: IPRATROPIUM/ALBUTEROL 0.5-3(2.5)MG/3ML NEB HHN SCH ×3 (00:22→15:08)
[2022-01-19] MEDS: MIDODRINE HCL 5MG TABLET PO SCH ×3 (05:04→20:49)
[2022-01-19 07:01] LABS: BASOPHILS % 2.6 % (0.0-2.0); EOSINOPHILS % 5.4 % (0.0-5.0); HEMATOCRIT. 26.7 % (42.0-52.0); HEMOGLOBIN. 8.9 g/dL (14.0-18.0); LYMPHOCYTES % 34.4 % (20.0-50.0); MEAN CORPUSCULAR HEMOGLOBIN 25.8 pg (28.0-32.0); MEAN CORPUSCULAR VOLUME 77.5 fL (80.0-94.0); MEAN PLATELET VOLUME 7.6 fl (7.4-10.4); MONOCYTES % 10.7 % (2.0-8.0); NEUTROPHILS % 46.9 % (40.0-76.0); PLATELET 702 x1000/uL (130-400); RED BLOOD CELL COUNT 3.45 mill/uL (4.7-6.1); RED CELL DISTRIBUTION WIDTH 17.5 % (11.6-14.6)
[2022-01-19 07:24] LABS: CHLORIDE 104 mEq/L (98-107)
[2022-01-19 07:30] LABS: PHOSPHORUS 2.8 mg/dL (2.5-4.9)
[2022-01-19] MEDS: BLOOD SUGAR DIAGNOSTIC STRIP TEST SCH ×4 (07:30→20:47)
[2022-01-19] MEDS: INSULIN LISPRO 100 UNITS/ML SUBCUT SCH ×4 (08:00→20:47)
[2022-01-19] MEDS: SILVER SULFADIAZINE 1% CREAM 50GM TOP SCH ×2 (09:01→18:32)
[2022-01-19] MEDS: ENOXAPARIN 40MG/0.4ML SYR SUBCUT SCH (11:49)
[2022-01-19] MEDS: INSULIN GLARGINE UD 100 UNITS/ML SYR SUBCUT SCH ×2 (11:50→20:51)
[2022-01-19] MEDS ORDERED: [UNRECOGNIZED DRUG - CODE] MC (14:44)
[2022-01-19] MEDS ORDERED: SYRI-219 SQ (14:44)
[2022-01-19] MEDS ORDERED: MIDO5TAB4 PO (14:44)
[2022-01-19] MEDS ORDERED: BLOO-1812 MC (14:44)
[2022-01-19] MEDS ORDERED: INSLIS SUBCUT (14:44)
[2022-01-19] MEDS ORDERED: LANC-934 TP (14:44)
[2022-01-19] MEDS ORDERED: LANTUSUD SUBCUT (14:44)
[2022-01-19] MEDS ORDERED: [UNRECOGNIZED DRUG - CODE] MC (14:44)
[2022-01-20] VITALS: BP 110/67
[2022-01-20] MEDS: IPRATROPIUM/ALBUTEROL 0.5-3(2.5)MG/3ML NEB HHN SCH ×3 (00:57→16:40)
[2022-01-20 04:00] VITALS: BP 90/63
[2022-01-20] MEDS: MIDODRINE HCL 5MG TABLET PO SCH ×3 (05:23→21:03)
[2022-01-20 06:56] LABS: BASOPHILS % 2.4 % (0.0-2.0); EOSINOPHILS % 5.7 % (0.0-5.0); HEMOGLOBIN. 9.2 g/dL (14.0-18.0); LYMPHOCYTES % 38.1 % (20.0-50.0); MEAN CORPUSCULAR HEMOGLOBIN 25.6 pg (28.0-32.0); MEAN CORPUSCULAR VOLUME 77.6 fL (80.0-94.0); MEAN PLATELET VOLUME 7.8 fl (7.4-10.4); MONOCYTES % 10.3 % (2.0-8.0); NEUTROPHILS % 43.5 % (40.0-76.0); PLATELET 694 x1000/uL (130-400); RED CELL DISTRIBUTION WIDTH 17.3 % (11.6-14.6)
[2022-01-20 06:57] LABS: CHLORIDE 104 mEq/L (98-107)
[2022-01-20 07:05] LABS: PHOSPHORUS 2.9 mg/dL (2.5-4.9)
[2022-01-20] MEDS: BLOOD SUGAR DIAGNOSTIC STRIP TEST SCH ×4 (07:51→21:03)
[2022-01-20] MEDS: INSULIN LISPRO 100 UNITS/ML SUBCUT SCH ×4 (07:51→21:00)
[2022-01-20 07:58] VITALS: BP 118/74
[2022-01-20] MEDS: SILVER SULFADIAZINE 1% CREAM 50GM TOP SCH (09:40)
[2022-01-20] MEDS: INSULIN GLARGINE UD 100 UNITS/ML SYR SUBCUT SCH ×2 (09:41→21:07)
[2022-01-20] MEDS: ENOXAPARIN 40MG/0.4ML SYR SUBCUT SCH (10:03)
[2022-01-20] MEDS ORDERED: MAGNESIUM 2 G PREMIX 50 ML IV NR (11:30)
[2022-01-20 12:00] VITALS: BP 112/71
[2022-01-20] MEDS ORDERED: LIDOCAINE HCL 2% JELLY 5ML TOP NR (12:00)
[2022-01-20] MEDS ORDERED: LIDOCAINE HCL/EPINEPHRINE 1%-EPI 1:100,000 20 ML VIAL INFIL NR (12:00)
[2022-01-20 16:00] VITALS: BP 121/73
[2022-01-20 20:00] VITALS: BP 98/51
[2022-01-21] VITALS (8 sets, daily range): BP systolic 104–124; BP diastolic 67–82
[2022-01-21] MEDS: IPRATROPIUM/ALBUTEROL 0.5-3(2.5)MG/3ML NEB HHN SCH ×3 (00:33→15:30)
[2022-01-21 06:12] LABS: PHOSPHORUS 2.4 mg/dL (2.5-4.9)
[2022-01-21] MEDS: MIDODRINE HCL 5MG TABLET PO SCH ×3 (06:20→21:30)
[2022-01-21 06:59] LABS: BASOPHILS % 2.5 % (0.0-2.0); EOSINOPHILS % 3.2 % (0.0-5.0); LYMPHOCYTES % 37.1 % (20.0-50.0); MEAN CORPUSCULAR HEMOGLOBIN 25.8 pg (28.0-32.0); MEAN CORPUSCULAR VOLUME 77.4 fL (80.0-94.0); MEAN PLATELET VOLUME 7.6 fl (7.4-10.4); MONOCYTES % 10.8 % (2.0-8.0); NEUTROPHILS % 46.4 % (40.0-76.0); PLATELET 603 x1000/uL (130-400); RED BLOOD CELL COUNT 3.48 mill/uL (4.7-6.1); RED CELL DISTRIBUTION WIDTH 16.9 % (11.6-14.6)
[2022-01-21] MEDS: BLOOD SUGAR DIAGNOSTIC STRIP TEST SCH ×4 (07:30→21:29)
[2022-01-21] MEDS: INSULIN LISPRO 100 UNITS/ML SUBCUT SCH ×4 (08:00→21:40)
[2022-01-21] MEDS: INSULIN GLARGINE UD 100 UNITS/ML SYR SUBCUT SCH ×2 (11:44→21:41)
[2022-01-21] MEDS: ENOXAPARIN 40MG/0.4ML SYR SUBCUT SCH (11:47)
[2022-01-21] MEDS ORDERED: SODIUM PHOS,M-BASIC-D-BASIC 15 MM in DEXT 5% WATER 245 ML IV NR (20:00)
[2022-01-22] VITALS: BP 133/77
[2022-01-22] MEDS: IPRATROPIUM/ALBUTEROL 0.5-3(2.5)MG/3ML NEB HHN SCH ×3 (00:30→16:03)
[2022-01-22 03:35] VITALS: BP 109/63
[2022-01-22 06:11] LABS: PHOSPHORUS 4.2 mg/dL (2.5-4.9)
[2022-01-22] MEDS: MIDODRINE HCL 5MG TABLET PO SCH ×3 (06:18→21:26)
[2022-01-22 06:25] LABS: BASOPHILS % 2.7 % (0.0-2.0); EOSINOPHILS % 2.4 % (0.0-5.0); HEMATOCRIT. 26.7 % (42.0-52.0); HEMOGLOBIN. 8.8 g/dL (14.0-18.0); MEAN CORPUSCULAR HEMOGLOBIN 25.8 pg (28.0-32.0); MEAN CORPUSCULAR VOLUME 77.9 fL (80.0-94.0); MEAN PLATELET VOLUME 7.7 fl (7.4-10.4); MONOCYTES % 9.4 % (2.0-8.0); NEUTROPHILS % 54.5 % (40.0-76.0); PLATELET 552 x1000/uL (130-400); RED BLOOD CELL COUNT 3.42 mill/uL (4.7-6.1); RED CELL DISTRIBUTION WIDTH 17.3 % (11.6-14.6)
[2022-01-22] MEDS: BLOOD SUGAR DIAGNOSTIC STRIP TEST SCH ×4 (07:30→21:00)
[2022-01-22 08:00] VITALS: BP 133/79
[2022-01-22] MEDS: INSULIN LISPRO 100 UNITS/ML SUBCUT SCH ×4 (09:55→21:00)
[2022-01-22] MEDS: ENOXAPARIN 40MG/0.4ML SYR SUBCUT SCH (11:02)
[2022-01-22 12:00] VITALS: BP 105/78
[2022-01-22] MEDS: INSULIN GLARGINE UD 100 UNITS/ML SYR SUBCUT SCH ×2 (12:00→21:45)
[2022-01-22 16:00] VITALS: BP 129/84
[2022-01-22 20:00] VITALS: BP 135/90
[2022-01-23] VITALS: BP 119/79
[2022-01-23] MEDS: IPRATROPIUM/ALBUTEROL 0.5-3(2.5)MG/3ML NEB HHN SCH ×3 (00:47→14:00)
[2022-01-23 04:00] VITALS: BP 126/76
[2022-01-23] MEDS: MIDODRINE HCL 5MG TABLET PO SCH ×3 (05:59→21:18)
[2022-01-23] MEDS: BLOOD SUGAR DIAGNOSTIC STRIP TEST SCH ×4 (06:49→20:56)
[2022-01-23] MEDS: INSULIN LISPRO 100 UNITS/ML SUBCUT SCH ×4 (07:50→21:25)
[2022-01-23 08:00] VITALS: BP 96/55
[2022-01-23 11:10] LABS: CHLORIDE 101 mEq/L (98-107)
[2022-01-23] MEDS: INSULIN GLARGINE UD 100 UNITS/ML SYR SUBCUT SCH ×2 (11:11→21:25)
[2022-01-23] MEDS: ENOXAPARIN 40MG/0.4ML SYR SUBCUT SCH (11:12)
[2022-01-23 11:15] LABS: EOSINOPHILS % 2.1 % (0.0-5.0); HEMATOCRIT. 27.8 % (42.0-52.0); HEMOGLOBIN. 9.1 g/dL (14.0-18.0); LYMPHOCYTES % 22.9 % (20.0-50.0); MEAN CORPUSCULAR HEMOGLOBIN 25.4 pg (28.0-32.0); MEAN PLATELET VOLUME 7.7 fl (7.4-10.4); MONOCYTES % 9.5 % (2.0-8.0); NEUTROPHILS % 63.5 % (40.0-76.0); PLATELET 528 x1000/uL (130-400); RED BLOOD CELL COUNT 3.56 mill/uL (4.7-6.1)
[2022-01-23 11:17] LABS: PHOSPHORUS 2.7 mg/dL (2.5-4.9)
[2022-01-23 12:00] VITALS: BP 113/83
[2022-01-23 16:00] VITALS: BP 120/76
[2022-01-23] MEDS ORDERED: MAGNESIUM 2 G PREMIX 50 ML IV NR (17:30)
[2022-01-23 20:00] VITALS: BP 95/52
[2022-01-23] MEDS: ACETAMINOPHEN 325MG TABLET PO PRN (22:31)
[2022-01-23 23:16] LABS: BASOPHILS % 2.3 % (0.0-2.0); EOSINOPHILS % 2.3 % (0.0-5.0); HEMATOCRIT. 27.3 % (42.0-52.0); HEMOGLOBIN. 8.9 g/dL (14.0-18.0); LYMPHOCYTES % 26.8 % (20.0-50.0); MEAN CORPUSCULAR HEMOGLOBIN 25.4 pg (28.0-32.0); MEAN CORPUSCULAR VOLUME 77.5 fL (80.0-94.0); MEAN PLATELET VOLUME 7.4 fl (7.4-10.4); NEUTROPHILS % 57.6 % (40.0-76.0); PLATELET 528 x1000/uL (130-400); RED BLOOD CELL COUNT 3.52 mill/uL (4.7-6.1); RED CELL DISTRIBUTION WIDTH 17.4 % (11.6-14.6)
[2022-01-24] VITALS: BP 103/66
[2022-01-24] MEDS: IPRATROPIUM/ALBUTEROL 0.5-3(2.5)MG/3ML NEB HHN SCH ×3 (00:27→16:00)
[2022-01-24 04:00] VITALS: BP 112/71
[2022-01-24] MEDS: MIDODRINE HCL 5MG TABLET PO SCH ×3 (05:34→22:03)
[2022-01-24 08:00] VITALS: BP 115/78
[2022-01-24] MEDS: BLOOD SUGAR DIAGNOSTIC STRIP TEST SCH ×4 (08:00→21:00)
[2022-01-24] MEDS: INSULIN LISPRO 100 UNITS/ML SUBCUT SCH ×4 (08:59→22:15)
[2022-01-24] MEDS: INSULIN GLARGINE UD 100 UNITS/ML SYR SUBCUT SCH ×2 (11:24→22:15)
[2022-01-24] MEDS: ENOXAPARIN 40MG/0.4ML SYR SUBCUT SCH (11:24)
[2022-01-24 12:00] VITALS: BP 129/84
[2022-01-24] MEDS ORDERED: LIDOCAINE HCL 2% JELLY 5ML TOP NR (13:00)
[2022-01-24 16:00] VITALS: BP 119/79
[2022-01-24 20:00] VITALS: BP 99/57
[2022-01-25] VITALS: BP 106/59
[2022-01-25] MEDS: IPRATROPIUM/ALBUTEROL 0.5-3(2.5)MG/3ML NEB HHN SCH ×3 (01:25→16:21)
[2022-01-25 04:00] VITALS: BP 119/63
[2022-01-25] MEDS: BLOOD SUGAR DIAGNOSTIC STRIP TEST SCH ×3 (06:31→20:38)
[2022-01-25] MEDS: MIDODRINE HCL 5MG TABLET PO SCH ×3 (06:31→21:00)
[2022-01-25] MEDS: INSULIN LISPRO 100 UNITS/ML SUBCUT SCH ×3 (06:33→20:59)
[2022-01-25 08:00] VITALS: BP 97/52
[2022-01-25] MEDS: INSULIN GLARGINE UD 100 UNITS/ML SYR SUBCUT SCH ×2 (10:16→21:30)
[2022-01-25] MEDS: ENOXAPARIN 40MG/0.4ML SYR SUBCUT SCH (11:17)
[2022-01-25 12:00] VITALS: BP 142/79
[2022-01-25] MEDS ORDERED: LIDOCAINE HCL 2% JELLY 5ML TOP NR (12:00)
[2022-01-25] MEDS ORDERED: LIDOCAINE HCL/EPINEPHRINE 1%-EPI 1:100,000 10 ML VIAL INFIL NR (12:00)
[2022-01-25 16:00] VITALS: BP 116/74
[2022-01-25 20:00] VITALS: BP 96/57
[2022-01-26] VITALS: BP 98/52
[2022-01-26] MEDS: IPRATROPIUM/ALBUTEROL 0.5-3(2.5)MG/3ML NEB HHN SCH ×4 (01:01→23:22)
[2022-01-26 04:00] VITALS: BP 111/66
[2022-01-26] MEDS: MIDODRINE HCL 5MG TABLET PO SCH ×3 (05:42→21:00)
[2022-01-26] MEDS: BLOOD SUGAR DIAGNOSTIC STRIP TEST SCH ×4 (06:32→20:17)
[2022-01-26] MEDS: INSULIN LISPRO 100 UNITS/ML SUBCUT SCH ×4 (07:50→20:42)
[2022-01-26 08:00] VITALS: BP 115/71
[2022-01-26] MEDS: INSULIN GLARGINE UD 100 UNITS/ML SYR SUBCUT SCH ×2 (09:30→21:09)
[2022-01-26 12:00] VITALS: BP 122/82
[2022-01-26] MEDS: ENOXAPARIN 40MG/0.4ML SYR SUBCUT SCH (12:34)
[2022-01-26 16:00] VITALS: BP 116/74
[2022-01-26 20:00] VITALS: BP 119/75
[2022-01-26] MEDS: ACETAMINOPHEN 325MG TABLET PO PRN (20:49)
[2022-01-27] VITALS: BP 108/60
[2022-01-27 04:00] VITALS: BP 99/60
[2022-01-27] MEDS: MIDODRINE HCL 5MG TABLET PO SCH ×3 (05:06→21:22)
[2022-01-27] MEDS: BLOOD SUGAR DIAGNOSTIC STRIP TEST SCH ×4 (07:20→20:43)
[2022-01-27] MEDS: INSULIN LISPRO 100 UNITS/ML SUBCUT SCH ×4 (07:50→20:43)
[2022-01-27 08:00] VITALS: BP 111/71
[2022-01-27] MEDS: IPRATROPIUM/ALBUTEROL 0.5-3(2.5)MG/3ML NEB HHN SCH ×2 (09:10→16:50)
[2022-01-27 09:23] LABS: CHLORIDE 103 mEq/L (98-107)
[2022-01-27 09:27] LABS: BASOPHILS % 1.5 % (0.0-2.0); EOSINOPHILS % 2.6 % (0.0-5.0); HEMATOCRIT. 27.2 % (42.0-52.0); HEMOGLOBIN. 9.1 g/dL (14.0-18.0); LYMPHOCYTES % 19.7 % (20.0-50.0); MEAN CORPUSCULAR HEMOGLOBIN 25.9 pg (28.0-32.0); MEAN CORPUSCULAR VOLUME 77.6 fL (80.0-94.0); MEAN PLATELET VOLUME 7.5 fl (7.4-10.4); MONOCYTES % 6.8 % (2.0-8.0); NEUTROPHILS % 69.4 % (40.0-76.0); PLATELET 388 x1000/uL (130-400); RED BLOOD CELL COUNT 3.51 mill/uL (4.7-6.1); RED CELL DISTRIBUTION WIDTH 17.2 % (11.6-14.6)
[2022-01-27 09:30] LABS: PHOSPHORUS 3.4 mg/dL (2.5-4.9)
[2022-01-27 12:00] VITALS: BP 103/62
[2022-01-27] MEDS: INSULIN GLARGINE UD 100 UNITS/ML SYR SUBCUT SCH ×2 (12:13→20:44)
[2022-01-27] MEDS: ENOXAPARIN 40MG/0.4ML SYR SUBCUT SCH (13:41)
[2022-01-27] MEDS: VITAMINS A AND D OINT TUBE TOP SCH (14:39)
[2022-01-27 16:00] VITALS: BP 119/69
[2022-01-27 20:00] VITALS: BP 99/59
[2022-01-27] MEDS ORDERED: MAGNESIUM 1 G PREMIX 100 ML IV NR (20:30)
[2022-01-27] MEDS: ACETAMINOPHEN 325MG TABLET PO PRN (21:24)
[2022-01-28] VITALS (7 sets, daily range): BP systolic 96–121; BP diastolic 60–91
[2022-01-28] MEDS: INSULIN GLARGINE UD 100 UNITS/ML SYR SUBCUT SCH ×3 (01:05→21:08)
[2022-01-28] MEDS: INSULIN LISPRO 100 UNITS/ML SUBCUT SCH ×5 (01:05→21:00)
[2022-01-28] MEDS: IPRATROPIUM/ALBUTEROL 0.5-3(2.5)MG/3ML NEB HHN SCH ×3 (01:31→14:32)
[2022-01-28] MEDS: MIDODRINE HCL 5MG TABLET PO SCH ×5 (06:04→21:27)
[2022-01-28] MEDS: BLOOD SUGAR DIAGNOSTIC STRIP TEST SCH ×4 (07:05→21:08)
[2022-01-28] MEDS: VITAMINS A AND D OINT TUBE TOP SCH (10:27)
[2022-01-28] MEDS: ENOXAPARIN 40MG/0.4ML SYR SUBCUT SCH (10:31)
[2022-01-29] VITALS: BP 118/75
[2022-01-29] MEDS: IPRATROPIUM/ALBUTEROL 0.5-3(2.5)MG/3ML NEB HHN SCH ×3 (02:17→15:40)
[2022-01-29 04:00] VITALS: BP 119/77
[2022-01-29] MEDS: ACETAMINOPHEN 325MG TABLET PO PRN (04:23)
[2022-01-29] MEDS: MIDODRINE HCL 5MG TABLET PO SCH ×3 (06:00→21:17)
[2022-01-29] MEDS: BLOOD SUGAR DIAGNOSTIC STRIP TEST SCH ×4 (07:51→21:27)
[2022-01-29 08:20] VITALS: BP 109/69
[2022-01-29] MEDS: VITAMINS A AND D OINT TUBE TOP SCH (08:52)
[2022-01-29] MEDS: INSULIN LISPRO 100 UNITS/ML SUBCUT SCH ×4 (09:39→21:38)
[2022-01-29] MEDS: ENOXAPARIN 40MG/0.4ML SYR SUBCUT SCH (11:10)
[2022-01-29] MEDS: INSULIN GLARGINE UD 100 UNITS/ML SYR SUBCUT SCH ×2 (11:19→21:38)
[2022-01-29 12:00] VITALS: BP 113/74
[2022-01-29 16:00] VITALS: BP 100/57
[2022-01-29 20:00] VITALS: BP 107/67
[2022-01-30] VITALS: BP 118/80
[2022-01-30] MEDS: IPRATROPIUM/ALBUTEROL 0.5-3(2.5)MG/3ML NEB HHN SCH ×3 (00:09→16:27)
[2022-01-30 04:00] VITALS: BP 112/80
[2022-01-30] MEDS: MIDODRINE HCL 5MG TABLET PO SCH ×3 (06:05→21:48)
[2022-01-30] MEDS: BLOOD SUGAR DIAGNOSTIC STRIP TEST SCH ×4 (06:09→21:48)
[2022-01-30] MEDS: INSULIN LISPRO 100 UNITS/ML SUBCUT SCH ×4 (06:09→21:52)
[2022-01-30 08:00] VITALS: BP 134/82
[2022-01-30] MEDS: VITAMINS A AND D OINT TUBE TOP SCH (09:55)
[2022-01-30] MEDS: INSULIN GLARGINE UD 100 UNITS/ML SYR SUBCUT SCH ×2 (09:56→21:51)
[2022-01-30] MEDS: ACETAMINOPHEN 325MG TABLET PO PRN ×2 (10:06→21:48)
[2022-01-30] MEDS: ENOXAPARIN 40MG/0.4ML SYR SUBCUT SCH (11:00)
[2022-01-30 12:00] VITALS: BP 110/77
[2022-01-30 16:00] VITALS: BP 140/90
[2022-01-30 20:00] VITALS: BP 123/76
[2022-01-31] VITALS: BP 103/57
[2022-01-31] MEDS: IPRATROPIUM/ALBUTEROL 0.5-3(2.5)MG/3ML NEB HHN SCH ×4 (02:10→20:53)
[2022-01-31 04:00] VITALS: BP 119/77
[2022-01-31] MEDS: MIDODRINE HCL 5MG TABLET PO SCH ×3 (06:00→21:37)
[2022-01-31] MEDS: BLOOD SUGAR DIAGNOSTIC STRIP TEST SCH ×4 (06:05→21:37)
[2022-01-31] MEDS: INSULIN LISPRO 100 UNITS/ML SUBCUT SCH ×4 (07:50→21:36)
[2022-01-31 08:00] VITALS: BP 104/56
[2022-01-31] MEDS: ENOXAPARIN 40MG/0.4ML SYR SUBCUT SCH (10:11)
[2022-01-31] MEDS: VITAMINS A AND D OINT TUBE TOP SCH (10:11)
[2022-01-31] MEDS: INSULIN GLARGINE UD 100 UNITS/ML SYR SUBCUT SCH ×2 (10:32→21:36)
[2022-01-31 16:00] VITALS: BP 141/85
[2022-01-31 20:00] VITALS: BP 122/79
[2022-02-01] VITALS: BP 144/65
[2022-02-01 04:00] VITALS: BP 126/88
[2022-02-01] MEDS: MIDODRINE HCL 5MG TABLET PO SCH ×3 (06:00→22:15)
[2022-02-01 08:00] VITALS: BP 123/56
[2022-02-01] MEDS: VITAMINS A AND D OINT TUBE TOP SCH (08:30)
[2022-02-01] MEDS: IPRATROPIUM/ALBUTEROL 0.5-3(2.5)MG/3ML NEB HHN SCH ×2 (08:40→16:40)
[2022-02-01] MEDS: ENOXAPARIN 40MG/0.4ML SYR SUBCUT SCH (10:51)
[2022-02-01] MEDS: INSULIN GLARGINE UD 100 UNITS/ML SYR SUBCUT SCH ×2 (11:00→22:14)
[2022-02-01 12:00] VITALS: BP 125/79
[2022-02-01] MEDS ORDERED: IOHEXOL-300 100 ML BOTTLE ONE (12:42)
[2022-02-01] MEDS ORDERED: DEXTROSE 50% WATER 50ML SYRINGE IV PRN (12:45)
[2022-02-01] MEDS: INSULIN LISPRO 100 UNITS/ML SUBCUT SCH ×3 (13:30→22:15)
[2022-02-01 16:00] VITALS: BP 131/81
[2022-02-01] MEDS: BLOOD SUGAR DIAGNOSTIC STRIP TEST SCH ×2 (17:12→21:00)
[2022-02-01 20:00] VITALS: BP 107/70
[2022-02-02] VITALS: BP 110/74
[2022-02-02] MEDS: IPRATROPIUM/ALBUTEROL 0.5-3(2.5)MG/3ML NEB HHN SCH ×3 (01:10→16:30)
[2022-02-02 04:00] VITALS: BP 109/71
[2022-02-02] MEDS: BLOOD SUGAR DIAGNOSTIC STRIP TEST SCH ×4 (07:25→21:00)
[2022-02-02] MEDS: INSULIN LISPRO 100 UNITS/ML SUBCUT SCH ×3 (07:50→17:22)
[2022-02-02] MEDS: MIDODRINE HCL 5MG TABLET PO SCH ×3 (08:37→17:22)
[2022-02-02] MEDS: VITAMINS A AND D OINT TUBE TOP SCH (08:41)
[2022-02-02] MEDS: ENOXAPARIN 40MG/0.4ML SYR SUBCUT SCH (11:05)
[2022-02-02] MEDS: INSULIN GLARGINE UD 100 UNITS/ML SYR SUBCUT SCH (11:09)
[2022-02-02 12:00] VITALS: BP 137/85
[2022-02-02 16:00] VITALS: BP 113/72
[2022-02-02 20:00] VITALS: BP 134/81
[2022-02-03] VITALS: BP 104/68
[2022-02-03] MEDS: INSULIN GLARGINE UD 100 UNITS/ML SYR SUBCUT SCH ×3 (00:11→21:55)
[2022-02-03] MEDS: IPRATROPIUM/ALBUTEROL 0.5-3(2.5)MG/3ML NEB HHN SCH ×3 (01:01→12:34)
[2022-02-03 04:00] VITALS: BP 133/82
[2022-02-03] MEDS: BLOOD SUGAR DIAGNOSTIC STRIP TEST SCH ×4 (06:44→21:53)
[2022-02-03 08:00] VITALS: BP 106/72
[2022-02-03] MEDS: INSULIN LISPRO 100 UNITS/ML SUBCUT SCH ×4 (09:09→21:00)
[2022-02-03] MEDS: VITAMINS A AND D OINT TUBE TOP SCH (09:10)
[2022-02-03] MEDS: MIDODRINE HCL 5MG TABLET PO SCH ×3 (09:10→17:12)
[2022-02-03] MEDS: ENOXAPARIN 40MG/0.4ML SYR SUBCUT SCH (10:10)
[2022-02-03 12:00] VITALS: BP 134/89
[2022-02-03 16:00] VITALS: BP 112/75
[2022-02-03 20:00] VITALS: BP 105/51
[2022-02-04] VITALS: BP 108/53
[2022-02-04] MEDS: IPRATROPIUM/ALBUTEROL 0.5-3(2.5)MG/3ML NEB HHN SCH ×4 (01:18→21:15)
[2022-02-04 04:00] VITALS: BP 119/86
[2022-02-04] MEDS: BLOOD SUGAR DIAGNOSTIC STRIP TEST SCH ×4 (06:41→21:00)
[2022-02-04] MEDS: INSULIN LISPRO 100 UNITS/ML SUBCUT SCH ×4 (07:50→21:00)
[2022-02-04 08:00] VITALS: BP 107/72
[2022-02-04] MEDS: VITAMINS A AND D OINT TUBE TOP SCH (09:31)
[2022-02-04] MEDS: MIDODRINE HCL 5MG TABLET PO SCH ×3 (09:31→17:02)
[2022-02-04] MEDS: ENOXAPARIN 40MG/0.4ML SYR SUBCUT SCH (10:18)
[2022-02-04] MEDS: INSULIN GLARGINE UD 100 UNITS/ML SYR SUBCUT SCH ×2 (10:24→21:50)
[2022-02-04 12:00] VITALS: BP 99/71
[2022-02-04 16:00] VITALS: BP 119/75
[2022-02-04] MEDS ORDERED: NYSTATIN POWDER 15GM TOP SCH (17:00)
[2022-02-04] MEDS: FLUDROCORTISONE ACETATE 0.1MG TABLET PO SCH (17:14)
[2022-02-04 20:00] VITALS: BP 106/65
[2022-02-05] VITALS: BP 127/83
[2022-02-05 04:00] VITALS: BP 125/80
[2022-02-05] MEDS: BLOOD SUGAR DIAGNOSTIC STRIP TEST SCH ×4 (07:20→21:00)
[2022-02-05] MEDS: INSULIN LISPRO 100 UNITS/ML SUBCUT SCH ×4 (07:50→21:00)
[2022-02-05 08:00] VITALS: BP 119/83
[2022-02-05] MEDS: IPRATROPIUM/ALBUTEROL 0.5-3(2.5)MG/3ML NEB HHN SCH ×3 (08:20→21:13)
[2022-02-05] MEDS: MIDODRINE HCL 5MG TABLET PO SCH ×3 (08:34→17:38)
[2022-02-05] MEDS: NYSTATIN POWDER 15GM TOP SCH (08:35)
[2022-02-05 12:00] VITALS: BP 119/84
[2022-02-05] MEDS: FLUDROCORTISONE ACETATE 0.1MG TABLET PO SCH (12:37)
[2022-02-05] MEDS: ENOXAPARIN 40MG/0.4ML SYR SUBCUT SCH (12:38)
[2022-02-05] MEDS: INSULIN GLARGINE UD 100 UNITS/ML SYR SUBCUT SCH ×2 (12:40→23:28)
[2022-02-05 16:00] VITALS: BP 112/78
[2022-02-05] MEDS: VITAMINS A AND D OINT TUBE TOP SCH (17:39)
[2022-02-05 20:00] VITALS: BP 125/76
[2022-02-06] VITALS (7 sets, daily range): BP systolic 95–136; BP diastolic 57–81
[2022-02-06] MEDS: BLOOD SUGAR DIAGNOSTIC STRIP TEST SCH ×4 (07:49→21:00)
[2022-02-06] MEDS: INSULIN LISPRO 100 UNITS/ML SUBCUT SCH ×4 (07:50→21:04)
[2022-02-06] MEDS: FLUDROCORTISONE ACETATE 0.1MG TABLET PO SCH (08:31)
[2022-02-06] MEDS: MIDODRINE HCL 5MG TABLET PO SCH ×3 (08:32→17:01)
[2022-02-06] MEDS: VITAMINS A AND D OINT TUBE TOP SCH (08:32)
[2022-02-06] MEDS: NYSTATIN POWDER 15GM TOP SCH (08:48)
[2022-02-06] MEDS: ENOXAPARIN 40MG/0.4ML SYR SUBCUT SCH (10:47)
[2022-02-06] MEDS: ACETAMINOPHEN 325MG TABLET PO PRN (11:41)
[2022-02-06] MEDS: IPRATROPIUM/ALBUTEROL 0.5-3(2.5)MG/3ML NEB HHN SCH ×2 (15:53→20:35)
[2022-02-06] MEDS ORDERED: FLUDROCORTISONE ACETATE 0.1MG TABLET PO SCH ×2 (17:00)
== END 2022-02-06 21:32 | DRG 720 ==
LOC: ER 12:10 → MICUSO 21:08 → 8WST 01-04 03:04 → MICUNO 01-04 17:07 → 5EST 01-11 15:30 → 6EST 01-22 10:27
PROVIDERS: ADMIT Internal Medicine; ATTEND Internal Medicine
PROC: 5A1955Z Respiratory Ventilation, Greater than 96 Consecutive Hours (ICD-10-PCS; principal; 2022-01-05)
PROC: 5A12012 Performance of Cardiac Output, Single, Manual (ICD-10-PCS; 2022-01-05)
PROC: 0BH17EZ Insertion of Endotracheal Airway into Trachea, Via Natural or Artificial Opening (ICD-10-PCS; 2022-01-05)
PROC: 02HV33Z Insertion of Infusion Device into Superior Vena Cava, Percutaneous Approach (ICD-10-PCS; 2022-01-08)
PROC: B548ZZA Ultrasonography of Superior Vena Cava, Guidance (ICD-10-PCS; 2022-01-08)
PROC: 30233N1 Transfusion of Nonautologous Red Blood Cells into Peripheral Vein, Percutaneous Approach (ICD-10-PCS; 2022-01-09)
PROC: 4A10X4Z Monitoring of Central Nervous Electrical Activity, External Approach (ICD-10-PCS; 2022-01-11)
PROC: 0JB70ZZ Excision of Back Subcutaneous Tissue and Fascia, Open Approach (ICD-10-PCS; 2022-01-20)
PROC: 0JB70ZZ Excision of Back Subcutaneous Tissue and Fascia, Open Approach (ICD-10-PCS; 2022-01-26)
PROC: 0JB70ZZ Excision of Back Subcutaneous Tissue and Fascia, Open Approach (ICD-10-PCS; 2022-02-04)
DX: A41.9 Sepsis, unspecified organism (principal); J96.01 Acute respiratory failure with hypoxia; R65.21 Severe sepsis with septic shock; G92.8 Other toxic encephalopathy; E43 Unspecified severe protein-calorie malnutrition; D61.818 Other pancytopenia; I50.21 Acute systolic (congestive) heart failure; J15.212 Pneumonia due to Methicillin resistant Staphylococcus aureus; L89.153 Pressure ulcer of sacral region, stage 3; I49.01 Ventricular fibrillation; I46.9 Cardiac arrest, cause unspecified; D68.9 Coagulation defect, unspecified; E83.39 Other disorders of phosphorus metabolism; D69.6 Thrombocytopenia, unspecified; E87.0 Hyperosmolality and hypernatremia; E11.22 Type 2 diabetes mellitus with diabetic chronic kidney disease; D50.9 Iron deficiency anemia, unspecified; E87.6 Hypokalemia; N17.9 Acute kidney failure, unspecified; N18.9 Chronic kidney disease, unspecified; K80.20 Calculus of gallbladder without cholecystitis without obstruction; E87.8 Other disorders of electrolyte and fluid balance, not elsewhere classified; E11.65 Type 2 diabetes mellitus with hyperglycemia; D72.819 Decreased white blood cell count, unspecified; T43.621A Poisoning by amphetamines, accidental (unintentional), initial encounter; L89.326 Pressure-induced deep tissue damage of left buttock; J15.6 Pneumonia due to other Gram-negative bacteria; R74.01 Elevation of levels of liver transaminase levels; I13.0 Hypertensive heart and chronic kidney disease with heart failure and stage 1 through stage 4 chronic kidney disease, or unspecified chronic kidney disease; F15.10 Other stimulant abuse, uncomplicated; R91.8 Other nonspecific abnormal finding of lung field; E83.42 Hypomagnesemia; I95.1 Orthostatic hypotension; R94.5 Abnormal results of liver function studies; E87.1 Hypo-osmolality and hyponatremia; K82.8 Other specified diseases of gallbladder; R79.89 Other specified abnormal findings of blood chemistry; Z20.822 Contact with and (suspected) exposure to COVID-19; N13.6 Pyonephrosis; Z82.49 Family history of ischemic heart disease and other diseases of the circulatory system; Y92.89 Other specified places as the place of occurrence of the external cause; Z71.51 Drug abuse counseling and surveillance of drug abuser; Z68.24 Body mass index [BMI] 24.0-24.9, adult; Z78.1 Physical restraint status
CPT/HCPCS: 36415; 36600; 71045; 71250; 71260; 74176; 76770; 76937; 78227; 80048; 80053; 80202; 80305; 81003; 82040; 82140; 82375; 82550; 82565; 82607; 82728; 82746; 82805; 82962; 83036; 83540; 83550; 83605; 83735; 83880; 84100; 84134; 84145; 84153; 84478; 84484; 84520; 85025; 85379; 85384; 86705; 86709; 86803; 86850; 86900; 86920; 87070; 87077; 87186; 87340; 87389; 87426; 92610; 93005; 93306; 93923; 94003; 94640; 95816; 97110; 97162; 97166; 97530; 97535; 99285; A6261; A9537; C1725; J0282; J0360; J0461; J0692; J1650; J1815; J2060; J2250; J2370; J2543; J2704; J3010; J3370; J3475; J3480; J3490; J7030; J7040; J7050; J7060; J7070; P9016; Q9967; G0103